=== PATIENT | female | born 1950 | race Two or more races ===

== ENCOUNTER 2020-12-16 08:00 | Outpatient (CLI) | payer OTHER | END 2020-12-16 08:30 | disposition home or self-care (01) | LOC: PPH VACUNA 08:00 | PROVIDERS: ATTEND Emergency Medicine Pediatric Emergency Medicine | DX: Z23 Encounter for immunization (principal) ==

== ENCOUNTER → 2020-12-28 08:19 | Outpatient (CLI) | payer OTHER | END | disposition home or self-care (01) | LOC: LAB 08:19 | PROVIDERS: ATTEND Internal Medicine | DX: E72.12 Methylenetetrahydrofolate reductase deficiency (principal) ==

== ENCOUNTER 2021-01-06 08:00 | Outpatient (CLI) | payer OTHER | END 2021-01-06 08:30 | disposition home or self-care (01) | LOC: PPH VACUNA 08:00 | PROVIDERS: ATTEND Emergency Medicine Pediatric Emergency Medicine | DX: Z23 Encounter for immunization (principal) ==